=== PATIENT | female | born 1995 | race Caucasian/White ===

== ENCOUNTER → 2016-05-08 | Outpatient (CLI) | payer SELFPAY | LOC: BHSO 16:05 | DX: F31.9 Bipolar disorder, unspecified (principal) ==

== ENCOUNTER → 2016-06-21 | Outpatient (CLI) | payer SELFPAY | LOC: BHSO 14:33 | DX: F90.0 Attention-deficit hyperactivity disorder, predominantly inattentive type (principal) ==

== ENCOUNTER → 2016-10-01 | Outpatient (CLI) | payer SELFPAY | LOC: BHSO 10:33 | DX: F31.73 Bipolar disorder, in partial remission, most recent episode manic (principal) ==

== ENCOUNTER → 2017-02-05 | Outpatient (CLI) | payer BC | LOC: BHSO 10:40 | DX: F41.1 Generalized anxiety disorder (principal) ==